=== PATIENT | female | born 1955 | race Caucasian/White ===

== ENCOUNTER 2019-02-13 01:30 | Observation (INO) | payer BC ==
[2017-03-30 16:12] VITALS: Ht 162.6 cm; Wt 102.5 kg
[2019-02-12 15:05] LABS: INR 0.93
[2019-02-13] VITALS (18 sets, daily range): BP systolic 125–201; BP diastolic 62–105
[~2019-02-13] VITALS: Ht 162.6 cm; Wt 102.5 kg
[~2019-02-13 01:30] MED LIST: ASPI-1471 PO; CALC-1046; CHOL10005 PO; FLUT1DIS27 IH; HYDR-389 PO; LEVO75TA73 PO; LOSA-57 PO; METF-450 PO; METO-257 PO; MONT10TA PO; MULT1CAP59 PO; NEBI5TAB PO; POTA-23 PO
[2019-02-13] MEDS ORDERED: fentaNYL CITR 250 MCG/5 ML AMP ONE (08:22)
[2019-02-13] MEDS ORDERED: LIDOCAINE 2% IV 100 MG/5ML SYR ONE (08:23)
[2019-02-13] MEDS ORDERED: PROPOFOL EMUL(*) 10MG/ML 20 ML 20 ML ONE (08:25)
[2019-02-13] MEDS ORDERED: ROPIVACAINE 0.5% 20 ML VIAL ONE (08:28)
[2019-02-13] MEDS ORDERED: DEXAMETHASONE SOD 4 MG/ML VIAL ONE (08:30)
[2019-02-13] MEDS ORDERED: DEXAMETHASONE SOD PHOS 10MG/ML ONE (08:30)
[2019-02-13] MEDS: LABETALOL HCL 25 MG/5 ML SYRINGE IVP PRN ×3 (08:30→09:06)
[2019-02-13] MEDS ORDERED: ONDANSETRON 4 MG/2 ML VIAL ONE (09:48)
[2019-02-13] MEDS ORDERED: KETAMINE HCL 200 MG/20 ML MDV ONE ×2 (09:49→10:46)
[2019-02-13] MEDS ORDERED: TRANEXAMIC AC 1000 MG/10ML SDV 1,000 MG in DEXTROSE 5% 50 ML BAG 50 ML IV ONE (10:20)
[2019-02-13] MEDS ORDERED: CELECOXIB 200 MG CAP PO ONE (10:20)
[2019-02-13] MEDS ORDERED: NORMOSOL R SOLN(*) 1000 ML BAG 1,000 ML IV PRN ×2 (10:20→11:45)
[2019-02-13] MEDS ORDERED: PREGABALIN 150 MG CAPSULE PO ONE (10:20)
[2019-02-13] MEDS ORDERED: MIDAZOLAM 2 MG/2 ML VIAL IVP PRN (10:20)
[2019-02-13] MEDS ORDERED: LIDOCAINE/SOD BICARB 8.4% SYR ID ONE (10:20)
[2019-02-13] MEDS ORDERED: ROPIVACAINE/EPI/CLONIDINE/KET 50 ML SYRINGE INJ ONE (10:20)
[2019-02-13] MEDS ORDERED: FAMOTIDINE 20 MG TAB PO ONE (10:20)
[2019-02-13] MEDS ORDERED: CLINDAMYCIN(*) 900 MG/NS 50 ML 50 ML IVPB ONE (10:20)
[2019-02-13] MEDS ORDERED: ROPIVACAINE 0.2% 400 MG/200ML 250 ML CONINFUS ONE (10:20)
[2019-02-13] MEDS ORDERED: ACETAMINOPHEN 500 MG TAB PO ONE (10:20)
[2019-02-13] MEDS ORDERED: MORPHINE 4 MG/ML SDV IVP PRN (11:45)
[2019-02-13] MEDS ORDERED: PROMETHAZINE 25 MG/ML 1 ML AMP IVP PRN (11:45)
[2019-02-13] MEDS ORDERED: MAGNESIUM HYDROXIDE* 30ML UDCP PO PRN (11:45)
[2019-02-13] MEDS ORDERED: oxyCODONE HCL 5 MG CAP PO PRN (11:45)
[2019-02-13] MEDS ORDERED: FLUSH 10 ML SYR IVP PRN (11:45)
[2019-02-13] MEDS ORDERED: ONDANSETRON 4 MG/2 ML VIAL IVP PRN (11:45)
[2019-02-13] MEDS ORDERED: KETOROLAC TROM 10MG TAB PO PRN (11:45)
[2019-02-13] MEDS ORDERED: ZOLPIDEM TARTRATE 5 MG TAB PO PRN (11:45)
[2019-02-13] MEDS ORDERED: BISACODYL 10 MG SUPP PR PRN (11:45)
[2019-02-13] MEDS ORDERED: fentaNYL CITR 100 MCG/2 ML AMP ONE (12:16)
--- NOTE | 2019-02-13 12:40 | OPERATIVE REPORT 1 ---
EVENT DATE: February 13, 2019 SURGEON: Lance Groves MD ANESTHESIOLOGIST: Luis A Cuello MD ANESTHESIA: Right adductor block followed by general. CHIEF DEPUTY CORONER: Deshawn Rodriguez PA-C PREOPERATIVE DIAGNOSIS Right knee degenerative joint disease. POSTOPERATIVE DIAGNOSIS Right knee degenerative joint disease. PROCEDURE PERFORMED Right total knee arthroplasty. IMPLANTS MicroPort medial pivot CS system with a 3 femur, 3 tibia, 12 mm CS insert, 32 x 8 symmetric patella, femur cut 6 degrees valgus, 10 mm. We also utilized two packages of [employer]Joy Valhalla Blue cement, ZipLine Wound Closure System and 50 cc of our standard Toradol/ropivacaine cocktail. SPECIMENS None. COMPLICATIONS None. BLOOD LOSS Less than 200 cc. OPERATION The patient received appropriate preoperative antibiotic, was brought to the OR, where performed right adductor canal block with indwelling catheter followed by general anesthesia. Right thigh tourniquet was placed but was not utilized. Right lower extremity prepped and draped in the usual sterile fashion. Midline incision was made followed by a medial parapatellar arthrotomy. Dissection was carried out subperiosteally along the medial and tibial plateau to the level of the semimembranosus insertion. We excised the fat pad, released the patella and noted there was significant eburnation of the patella, particularly the lateral facet, and grade 2 and 4 changes in trochlea and high-grade 3 changes in the lateral compartment. After the patella was released, it was everted, the knee brought up to hyperflexion. ACL and PCL were released subperiosteally by Bovie. The remaining articular cartilage was removed from the distal femoral condyles with sagittal saw. Step-cut drill was used to broach the broach the femoral canal. We placed our intramedullary guide and set up our distal cut at 60 degrees valgus, 10 mm and this was performed with care taken to protect the soft tissues. We then placed our sizing rotational guide, referencing off the posterior condyles, epicondyles and anterior flange. Femur was sized to #4. We drilled the peg holes for the 3-degree external rotation. Four-in-one cutting guide was positioned followed by Z-retractors to protect the soft tissue. We made our four cuts. Tibia was brought anteriorly on the femur with appropriate retractors. Step cut drill was utilized to broach the tibial canal. Intramedullary tibial guide was then positioned and referencing 10 mm off a portion of the lateral tibial plateau that it was still decent cartilage. We set up for rotation and pinned our block into place and made our cuts with care taken to protect the soft tissue. The tibia was sized to #3. The remaining stump of the ACL and PCL and medial and lateral meniscus were removed by Bovie. Posterior osteophytes were removed by curved osteotome. Capsule was elevated with a Mcrae elevator. Trial tibial baseplate was then positioned, referencing for the previous rotation, pinned into place. We placed 10 mm insert and then moved up to a 12 and placed the femur. We had full extension. Flexion limited by body habitus to about 120 and satisfactory endpoint and anterior drawer at 90 degrees. The knee brought out in full extension. The high side of the patella medially was 18 mm. The low side was approximately 10 mm. Utilizing a free-hand cut, we cut the patella down to 13 mm, which gave us a small gap laterally. Peg hole trial was positioned inferiorly and medially, peg holes drilled and this accepted a 32 x 8 patella. Knee was brought up into flexion. Peg holes were drilled for the femur, trochlear chip cut and placed and, again, we had the aforementioned range of motion and stability and patella tracked well. Patella, femur and tibial insert were removed and tibia brought anterior with appropriate retractors and we set up our tibial guide for keel. This was cut, reamed and punched. Instrumentation was removed. Bone plug placed in the distal femur and knee brought out in full extension. We copiously irrigated by pulse lavage while we mixed two packages of the DonJoy Valhalla blue cement. 10 cc of our cocktail were injected in the posterior capsule followed by placing the knee in appropriate position. We then started with the tibia and cemented this into place followed by 12 mm CS insert and then femur. Excess cement was removed, knee brought out in full extension, axial compression while we cemented patella. It took 14 minutes for the cement to cure and then we had the aforementioned range of motion and stability. While the cement was curing, I injected the remaining 40 cc of our cocktail in the extensor mechanism followed by copious irrigation. We then closed the arthrotomy with #2 Vicryl followed by 2-0 Vicryl for subcutaneous tissues and with the knee bent at 45 degrees after cleaning the skin, ZipLine wound closure system. Compressive dressing was applied. Patient was extubated and taken to recovery in stable condition. Hospitalist team to be consulted for medical management and anticoagulation, PT for rehab. DASH
[2019-02-13] MEDS ORDERED: PROMETHAZINE 25 MG/ML 1 ML AMP ONE (12:52)
--- NOTE | 2019-02-13 14:48 | RADIOLOGY IMAGING REPORT ---
FACILITY: [facility] PATIENT NAME: Samantha Martin : 1955 MR: [id number] V: [id number] EXAM DATE: ORDERING PHYSICIAN: GEMMA CRUZ TECHNOLOGIST: [place] [facility] [place] Patient: Samantha Martin : 1955 Visit/Account:[id number] Date of Sevice: 02/13/2019 Exam type: KNEE LIMITED RIGHT History: POST OP R TKA Comparison: None. Findings: Two views of the right knee demonstrate a total right knee arthroplasty in good anatomic alignment. Soft tissue gas projects over the anterior aspect of this postoperative knee IMPRESSION: 1. As above Report Dictated By: Leilani Villalobos MD at 02/13/2019 2:43 PM Report E-Signed By: Leilani Villalobos MD at 02/13/2019 2:44 PM WSN:[id number]
--- NOTE | 2019-02-13 15:00 | Hospitalist Consultation ---
History of Present Illness Requesting Physician Dr. Groves Reason for Consult Hypertension Chief Complaint s/p right knee replacement History of Present Illness She was admitted s/p right knee replacement. It is reported the surgery went well and without complication. History Problems: (1) Asthma Status: Chronic (2) Benign hypertension Status: Chronic Home Meds Reported Medications Cholecalciferol (Vitamin D3) (VITAMIN D3) 1,000 Unit Tablet, 4000 UNIT PO QDAY, TAB 02/06/19 Levothyroxine Sodium (LEVOTHYROXINE SODIUM) 75 Mcg Tablet, 75 MCG PO 2XW, TAB 02/06/19 Metoprolol Tartrate (METOPROLOL TARTRATE) 100 Mg Tablet, 1 TAB PO QDAY, TAB 03/23/17 Fluticasone/Salmeterol (ADVAIR 100-50 DISKUS) 1 Each Disk.w.dev, IH BID 03/23/17 Calcium Carbonate (Calcium) 500 Mg Tab.chew, BID 03/23/17 Multivitamin (MULTIVITAMINS) 1 Each Capsule, PO, CAPSULE 03/23/17 Aspirin (ASPIR 81) 81 Mg Tablet.dr, 81 MG PO QDAY, TAB 03/23/17 Losartan/Hydrochlorothiazide (LOSARTAN-HCTZ 100-12.5 MG TAB) 1 Each Tablet, 1 EACH PO QDAY 03/23/17 Montelukast Sodium (SINGULAIR) 10 Mg Tablet, 1 TAB PO QDAY, TAB 03/23/17 Potassium Chloride (KLOR-CON 10) 10 Meq Tablet.er, 10 MEQ PO QDAY 03/23/17 Discontinued Reported Medications Acetaminophen/Hydrocodone (HYDROCODON-ACETAMINOPH 7.5-325) 1 Each Ea, 1-2 EACH PO Q6H PRN for PAIN, #60 EA 03/31/17 Allergies: Coded Allergies: amoxicillin (Verified Allergy, Intermediate, VOMIT, 03/23/17) clavulanic acid (Verified Allergy, Intermediate, VOMIT, 03/23/17) latex (Verified Allergy, Intermediate, "BREAKS OUT" , 03/23/17) levofloxacin (Verified Allergy, Intermediate, VOMIT, 03/23/17) Uncoded Allergies: chlorine (Adverse Reaction, Intermediate, 02/06/19) eyes swell, hands get red Patient History: FH: heart disease MOTHER FH: ovarian cancer BROTHER OR SISTER Hx Smoking: No Smoking Status: Never Smoker Caffeine/Cups Per Day: DRINKS DECAF COFFEE AND TEA Hx Alcohol Use: No Hx Substance Use Disorder: No History of IV Drug Use: No Review of Systems All Systems Reviewed/Normal: Yes, Except as Noted Gastrointestinal: Nausea Exam Vital Signs Vital Signs Date Time Temp Pulse Resp B/P (MAP) Pulse Ox O2 Delivery O2 Flow Rate FiO2 02/13/19 14:26 74 95 Nasal Cannula 0.5 02/13/19 14:15 125/77 (93) 02/13/19 13:10 98.1 12 General Appearance: Alert, Awake, No Acute Distress, Afebrile Neuro: No Gross deficits Cardiovascular: Regular Rate and Rhythm Respiratory: No Respiratory Distress, Clear to Auscultation GI: Abd Soft and Non-Tender Psych: Alert & Oriented X3, Appropriate Mood & Affect Assessment and Plan Problems: (1) S/P knee replacement Status: Acute Assessment & Plan: She will be placed on Aspirin for DVT prophylaxis. (2) Benign hypertension Status: Chronic Assessment & Plan: She is on chronic treatment with Losartan/ HCTZ and Metoprolol Succinate. Metoprolol and Losartan have been restarted with hold parameters. (3) Asthma Status: Chronic Assessment & Plan: Continue chronic Advair and Singular. Venous Thromboembolism Antithrombotics Is Pt On Any Antithrombotics?: No Problem Qualifiers (1) S/P knee replacement: Laterality: right Qualified Codes: Z96.651 - Presence of right artificial knee joint [employer]OR [employer] Feb 13, 2019 15:00
--- NOTE | 2019-02-13 15:00 | NUR ---
Physical Therapy Impression PT eval complete. Bed mobility completed with Lazara. Pt able to rise to stand with CGA and use of RW, with good tolerance to side step to HOB with RW. Pt reporting lightheadedness with mobility, but this remained stable. VSS throughout.CPM fit and placed running 0-30 degrees on R) LE at end of session. Pt reports that she discharged with her CPM after last sx, but that she did not use it per recommendation of her outpatient PT. This PT recommended that the pt discuss CPM use with her surgeon. Pt plans to d/c with OP PT services. Physical Therapy Goals 1: Pt to complete bed mobility with Lazara 2: Pt to complete transfers with SBA and RW 3: Pt to ambulate 150' with SBA and RW 4: Pt to asc/desc 3 stairs without railing and CGA Patient's Goals
[2019-02-13] MEDS: CLINDAMYCIN(*) 600 MG/NS 50 ML IVPB SCH (17:23)
[2019-02-13] MEDS: ACETAMINOPHEN 500 MG TAB PO SCH (17:23)
[2019-02-13] MEDS: METOPROLOL SUCC XL 50 MG TABCR 50 MG TAB.ER.24H PO SCH (21:21)
[2019-02-14] VITALS (8 sets, daily range): BP systolic 112–170; BP diastolic 57–83
[2019-02-14] MEDS: CLINDAMYCIN(*) 600 MG/NS 50 ML IVPB SCH ×2 (00:42→09:04)
[2019-02-14] MEDS: ACETAMINOPHEN 500 MG TAB PO SCH ×3 (00:46→17:11)
[2019-02-14] MEDS: SALMETEROL/FLUTIC 100/50 1 INH INH SCH ×3 (05:01→17:33)
[2019-02-14] MEDS: LOSARTAN POTASSIUM 50 MG TAB PO SCH (08:55)
[2019-02-14] MEDS: traMADol 50 MG TAB PO PRN ×3 (08:56→20:21)
[2019-02-14] MEDS: MONTELUKAST SODIUM 10 MG TAB PO SCH (08:56)
[2019-02-14] MEDS: ASPIRIN 325 MG TAB PO SCH (08:56)
[2019-02-14] MEDS ORDERED: METOPROLOL SUCC XL 50 MG TABCR 50 MG TAB.ER.24H PO SCH (09:00)
--- NOTE | 2019-02-14 10:11 | Hospitalist Progress Note ---
Subjective Progress Notes Subjective She was admitted s/p knee replacement. She has no complaints this morning. She had no acute events overnight. Patient Complains of: Cardiovascular: No: Chest Pain Respiratory: No: Shortness of Breath Physical Exam Vital Signs Date Time Temp Pulse Resp B/P (MAP) Pulse Ox O2 Delivery O2 Flow Rate FiO2 02/14/19 08:45 74 146/70 (95) 91 Room Air 02/14/19 06:52 98.4 18 0.5 Intake and Output 02/14/19 07:00 Intake Total 5056 ml Output Total 100 ml Balance 4956 ml Intake Oral 650 ml IV Total 2506 ml Other 1900 ml Output Estimated Blood Loss 100 ml # Voids 2 # Emeses 1 General Appearance: Alert, Awake, No Acute Distress, Afebrile Neuro: No Gross deficits Cardiovascular: Regular Rate and Rhythm Respiratory: No Respiratory Distress, Clear to Auscultation GI: Soft and Non-Tender Psych: Alert & Oriented X3, Appropriate Mood & Affect Assessment and Plan Problems: (1) S/P knee replacement Status: Acute Assessment & Plan: She will be placed on Aspirin for DVT prophylaxis. (2) Benign hypertension Status: Chronic Assessment & Plan: She is on chronic treatment with Losartan/ HCTZ and Metoprolol Succinate. Metoprolol and Losartan have been restarted with hold parameters. (3) Asthma Status: Chronic Assessment & Plan: Continue chronic Advair and Singular. Exam Sepsis Risk: No Definite Risk Problem Qualifiers (1) S/P knee replacement: Laterality: right Qualified Codes: Z96.651 - Presence of right artificial knee joint HECTOR HALL [employer]THOPEDIC PHYSICAL THERAPIST Feb 14, 2019 10:11
--- NOTE | 2019-02-14 15:53 | NUR ---
Physical Therapy Impression Pt states she does not plan to take CPM home. Educated Pt on studies on CPM use with returned verbal understanding. Emphasized the decision on CPM use is hers but she should discuss it with Dr. Groves. Pt states she will. Pt demonstrates SBA for supine>sit, CGA for sit<>stand, and CGA/SBA to ambulate 75' with RW on room air with SO2 maintaining >88%. Physical Therapy Goals 1: Pt to complete bed mobility with Lazara 2: Pt to complete transfers with SBA and RW 3: Pt to ambulate 150' with SBA and RW 4: Pt to asc/desc 3 stairs without railing and CGA Patient's Goals
--- NOTE | 2019-02-14 15:56 | NUR ---
Physical Therapy Impression Pt progressing toward goals and is appropriate for stair training next visit. Physical Therapy Goals 1: Pt to complete bed mobility with Lazara 2: Pt to complete transfers with SBA and RW 3: Pt to ambulate 150' with SBA and RW 4: Pt to asc/desc 3 stairs without railing and CGA Patient's Goals
[2019-02-14] MEDS: METOPROLOL SUCC XL 50 MG TABCR 50 MG TAB.ER.24H PO SCH (20:21)
[2019-02-15] MEDS: ACETAMINOPHEN 500 MG TAB PO SCH ×2 (01:16→09:54)
[2019-02-15 01:20] VITALS: BP 153/83
[2019-02-15 05:00] VITALS: BP 159/91
[2019-02-15] MEDS: SALMETEROL/FLUTIC 100/50 1 INH INH SCH (05:01)
[2019-02-15] MEDS: traMADol 50 MG TAB PO PRN (05:09)
[2019-02-15 07:23] VITALS: BP 165/88
[2019-02-15] MEDS: MONTELUKAST SODIUM 10 MG TAB PO SCH (09:00)
[2019-02-15] MEDS ORDERED: ASPI-757 PO (09:31)
--- NOTE | 2019-02-15 09:33 | Hospitalist Progress Note ---
Subjective Progress Notes Subjective She was admitted after knee replacement. She had no acute events overnight. She would like to go home today. Patient Complains of: Cardiovascular: No: Chest Pain Respiratory: No: Shortness of Breath Physical Exam Vital Signs Date Time Temp Pulse Resp B/P (MAP) Pulse Ox O2 Delivery O2 Flow Rate FiO2 02/15/19 08:00 91 Room Air 02/15/19 07:23 98.5 92 16 165/88 (113) 02/15/19 05:00 1.0 Intake and Output 02/15/19 01:00 Intake Total 650 ml Balance 650 ml Intake Oral 550 ml IV Total 100 ml # Voids 2 # Bowel Movements 1 General Appearance: Alert, Awake, No Acute Distress, Afebrile Neuro: No Gross deficits Cardiovascular: Regular Rate and Rhythm Respiratory: No Respiratory Distress, Clear to Auscultation GI: Soft and Non-Tender Psych: Alert & Oriented X3, Appropriate Mood & Affect Assessment and Plan Problems: (1) S/P knee replacement Status: Acute Assessment & Plan: She will be placed on Aspirin for DVT prophylaxis. (2) Benign hypertension Status: Chronic Assessment & Plan: She is on chronic treatment with Losartan/ HCTZ and Metoprolol Succinate. Metoprolol and Losartan were restarted with hold parameters. (3) Asthma Status: Chronic Assessment & Plan: Continue chronic Advair and Singular. Exam Sepsis Risk: No Definite Risk Problem Qualifiers (1) S/P knee replacement: Laterality: right Qualified Codes: Z96.651 - Presence of right artificial knee joint [facility] Feb 15, 2019 09:33
[2019-02-15] MEDS: ASPIRIN 325 MG TAB PO SCH (09:54)
[2019-02-15] MEDS: LOSARTAN POTASSIUM 50 MG TAB PO SCH (09:54)
--- NOTE | 2019-02-15 12:18 | NUR ---
Physical Therapy Impression Pt safe for DC when medically appropriate. Physical Therapy Goals 1: Pt to complete bed mobility with Lazara 2: Pt to complete transfers with SBA and RW 3: Pt to ambulate 150' with SBA and RW 4: Pt to asc/desc 3 stairs without railing and CGA Patient's Goals
--- NOTE | 2019-02-15 14:56 | DISCHARGE SUMMARY ---
DATE OF ADMISSION: February 13, 2019 DATE OF DISCHARGE: February 15, 2019 HISTORY Patient is a 63-year-old female admitted to Day Surgery and underwent right total knee arthroplasty without complication. Postoperatively, the hospitalist team was consulted for medical management and anticoagulation. She has done well. Wounds are clean, dry, and intact. On the day of discharge, she is neurovascularly intact. PLAN She will have outpatient physical therapy, and hospitalist team will transfer medical management and anticoagulation. Will follow up in our [place] clinic. PRINCIPAL DIAGNOSIS Right knee degenerative joint disease. PRINCIPAL PROCEDURE Right total knee arthroplasty. MTDD
[2019-02-16] MEDS ORDERED: LEVOTHYROXINE SOD 0.075 MG TAB PO SCH (06:00)
== END 2019-02-15 09:39 | disposition home or self-care (01) ==
LOC: OR 01:30 → MED 13:00
PROVIDERS: ADMIT Orthopaedic Surgery; ATTEND Orthopaedic Surgery
DX: M17.11 Unilateral primary osteoarthritis, right knee (principal); I10 Essential (primary) hypertension; J45.909 Unspecified asthma, uncomplicated; Z79.82 Long term (current) use of aspirin; Z85.3 Personal history of malignant neoplasm of breast; E01.8 Other iodine-deficiency related thyroid disorders and allied conditions
CPT/HCPCS: 27447; 36415; 73560; 85610; 86850; 86900; 86901; 94640; 97110; 97116; 97161; C1713; C1776; G0378; J1100; J2001; J2250; J2405; J2550; J2704; J2795; J3010; J3490; J3535; J7060